=== PATIENT | male | born 1965 | race Caucasian/White ===

== ENCOUNTER 2017-04-17 07:01 | Day surgery (SDC) | payer BC ==
[2017-04-16 11:15] VITALS: BMI 28.5
[2017-04-17 07:31] LABS: URINE APPEARANCE CLEAR; URINE BILIRUBIN NEGATIVE (NEGATIVE); URINE BLOOD NEGATIVE (NEGATIVE); URINE COLOR LTYELLOW; URINE GLUCOSE (UA) NEGATIVE (NEGATIVE); URINE KETONE NEGATIVE (NEGATIVE); URINE LEUK ESTERASE NEGATIVE (NEGATIVE); URINE NITRITE NEGATIVE (NEGATIVE); URINE PROTEIN NEGATIVE (NEGATIVE); URINE UROBILINOGEN NEGATIVE mg/dL (0.2-1.0)
[2017-04-17 07:50] LABS: INR 1.03 (0.82-1.09); PROTHROMBIN TIME (PATIENT) 11.6 SEC (9.98-11.88)
[2017-04-17 07:53] LABS: ACTIVATED PTT 30.6 SECONDS (26.9-34.4)
[2017-04-17] MEDS ORDERED: BUPIVACAINE HCL/PF 0.25% (2.5MG/ML) 10 ML VIAL ONE (08:53)
[2017-04-17] MEDS ORDERED: methylPREDNISolone ACET (DEPO) 80 MG/1 ML VIAL ONE (08:53)
[2017-04-17] MEDS ORDERED: LIDOCAINE HCL 1%, 10 MG/ML (20ML VIAL) ONE (08:53)
[2017-04-17] MEDS ORDERED: PROPOFOL 20 ML ONE ×2 (09:21)
[2017-04-17] MEDS ORDERED: MIDAZOLAM HCL 2 MG/2 ML SINGLE DOSE VIAL ONE (09:21)
[2017-04-17] MEDS ORDERED: LIDOCAINE HCL/PF 2% SDV 5ML VIAL ONE (09:21)
[2017-04-17] MEDS ORDERED: LIDOCAINE HCL 1%, 10 MG/ML (20ML VIAL) SNB ONE ×3 (09:31)
[2017-04-17] MEDS ORDERED: BUPIVACAINE HCL/PF 0.25% (2.5MG/ML) 10 ML VIAL IJ ONE ×2 (09:31)
[2017-04-17] MEDS ORDERED: methylPREDNISolone ACET (DEPO) 80 MG/1 ML VIAL IM ONE (09:32)
--- NOTE | 2017-04-17 10:25 | OP ---
DATE OF OPERATION: 04/17/2017 PREOPERATIVE DIAGNOSES: C6-7 degenerative disk disease with left C7 radiculopathy. POSTOPERATIVE DIAGNOSES: C6-7 degenerative disk disease with left C7 radiculopathy. ATTENDING SURGEON: Adam Bennett MD PROCEDURE: 1. Left C6-7 epidural steroid injection. 2. Intraoperative fluoroscopy. ANESTHESIA: Local with IV sedation. ANESTHESIOLOGIST: Abundio Lopez MD INDICATION: The patient is a 51-year-old male with recurrent neck pain and cervical radiculopathy. He had previously responded to cervical epidural steroid injection and cervical facet block for radiculopathy and axial neck pain, respectively. He comes back several years later with recurrent symptoms including some weakness of the left arm in the triceps area. The patient wants to try another epidural steroid injection as it helped him previously. The risks of the procedure include, but are not limited to, bleeding, infection, spinal headache, and neurological injury. The patient understands indication for the procedure, procedure in detail, risks and benefits and alternatives for the treatment of his cervical spine condition and wishes to proceed. No guarantees were given for a favorable outcome. PROCEDURE IN DETAIL: After the patient was taken to the operating room, he was placed in prone position with a pillow under his chin. Head was secured in a foam head rest. Posterior cervical region was cleaned with alcohol and prepped with Betadine. Arms were tucked on the sides. Posterior cervical region was anesthetized with 5 mL of 1% Xylocaine. A 22-gauge spinal needle was inserted under AP and lateral fluoroscopic guidance from a left-sided approach to C6-7. Zeid-lb-tkkrtxvqbb technique was utilized, and there was no CSF or blood backflow at any point in time. The needle was marched medially into the lateral recess, and 80 mg of Depo-Medrol 80 mg and 1 mL of 0.25% Marcaine were injected. The needle was withdrawn. Sterile bandage was applied. The patient tolerated the procedure well and was turned back to supine position, moving bilateral upper and lower extremities well. He did not complain of headache or any new neurological symptoms in his upper or lower extremities. ADAM BENNETT M.D. [id number]
[2017-04-17 11:57] VITALS: TEMP 98.1
[2017-04-17 11:58] VITALS: BP 108/75; PULSE 63
== END 2017-04-17 11:35 | disposition home or self-care (01) ==
LOC: JASU-SURG 07:01
PROVIDERS: ATTEND Neurological Surgery
PROC: 3E0R3BZ Introduction of Anesthetic Agent into Spinal Canal, Percutaneous Approach (ICD-10-PCS; 2017-04-17)
PROC: B01BZZZ Fluoroscopy of Spinal Cord (ICD-10-PCS; 2017-04-17)
PROC: 3E0R33Z Introduction of Anti-inflammatory into Spinal Canal, Percutaneous Approach (ICD-10-PCS; principal; 2017-04-17 09:00)
DX: M50.123 Cervical disc disorder at C6-C7 level with radiculopathy (principal)
CPT/HCPCS: 36415; 76000-TC-FY; 81003; 85610; 85730

== ENCOUNTER 2017-10-29 19:57 | Emergency (ER) | payer BC ==
--- NOTE | 2017-10-29 20:00 | PDOC ---
History of Present Illness - History of Present Illness Initial Comments: 10/29/17 20:22 Patient is a 52 year old male with a significant past medical history of Torn Meniscus, Spinal Stenosis, who presents to the ED with complaints of right hip pain that he states began x1 week ago. Patient reports sleeping last week when he accidently fell out of bed onto his right side with immediate pain. He reports right hip pain has been constant for one week and has shown no signs of subsiding, prompting him to come into the ED for further evaluation. Patient reports taking Gabapentin previously prescribed for his spinal stenosis with slight relied. He reports being concerned that he might have damaged in the area of the pain. Denies chest pain, Sob. Denies nausea, vomiting. Denies contact with sick individuals, out of state travelling. Denies dysuria, hematuria. Denies trauma to affected area. Denies diarrhea, constipation. Allergies: None Social history: Current everyday smoker. Social alcohol use. No illicit drugs. Surgical history: None PMD: None Adult ROS General: No fevers or chills, no weakness, no weight loss HEENT: No change in vision. No sore throat, No ear pain Cardiovascular: No chest pain or shortness of breath Respiratory:No cough, or wheezing. Gastrointestinal: No nausea, vomiting, diarrhea or constipation, No rectal bleeding Genitourinary: No dysuria, hematuria, or frequency Musculoskeletal: +Right hip pain. No joint or muscle pain or swelling Neurologic: No headache, vertigo, dizziness or loss of consciousness Psychiatric: No depression Skin: No rashes or easy bruising Endocrine: No increased thirst or abnormal weight change Allergic: No skin or latex allergy All other systems reviewed and normal Basic PE GENERAL: The patient is awake, alert, and fully oriented, in no acute distress. HEAD: Normal with no signs of trauma. EYES: Pupils equal, round and reactive to light, extraocular movements intact, sclera anicteric, conjunctiva clear. EXTREMITIES: +Mild soft tissue discomfort on deep palpation on the right thigh. +Full ROM of hip without any discomfort. No bony tenderness on palpation of pelvis of hip or thigh. Neurovascularly intact. Normal range of motion, no edema. NEUROLOGICAL: Normal speech, normal gait. PSYCH: Normal mood, normal affect. SKIN: Warm, Dry, normal turgor, no rashes or lesions noted. <Eugenio Lares - Last Filed: 10/29/17 20:22> - General History Source: Patient Exam Limitations: No Limitations - History of Present Illness Initial Comments: 10/29/17 20:47 A portion of this note was documented by scribe services under my direction. I have reviewed the details of the note, within reason, and agree with the documentation. The case summary and management plan written by me. Assessment and plan: This is a 52-year-old male who rolled out of bed landing on a hardwood floor approximately 1 week ago. Patient is ambulating with minimal difficulty since. Patient said he did have a bruise on his thigh that has since nearly resolved however because he is still having some discomfort with ambulation he came in for evaluation. Patient had minimal discomfort on palpation of the soft tissues however there was no tenderness on palpation of the bony structures of the hip or thigh. Patient reassured that the thigh or hip is not broken and discharged home <Cierra Pacheco I - Last Filed: 10/29/17 20:48> - General Chief Complaint: Injury Stated Complaint: FELL OUT OF BED ONE WEEK AGO INJURY TO RIGHT HIP A Time Seen by Provider: 10/29/17 20:00 Past History <Eugenio Lares - Last Filed: 10/29/17 20:22> - Past Medical History Anemia: No Asthma: No Cancer: No Cardiac Disorders: No CVA: No COPD: No CHF: No Dementia: No Diabetes: No GI Disorders: No Disorders: No HTN: No Hypercholesterolemia: No Liver Disease: Yes (H/O HEP -TREATED FOR SAME) Seizures: No Thyroid Disease: No - Surgical History Abdominal Surgery: No Appendectomy: No Cardiac Surgery: No Cholecystectomy: No Lung Surgery: No Neurologic Surgery: No Orthopedic Surgery: No - Immunization History Immunization Up to Date: Yes - Suicide/Smoking/Psychosocial Hx Smoking History: Current every day smoker Have you smoked in the past 12 months: Yes Number of Cigarettes Smoked Daily: 15 'Breaking Loose' booklet given: 04/17/17 Hx Alcohol Use: Yes (occasion) Drug/Substance Use Hx: No Substance Use Type: Alcohol Hx Substance Use Treatment: No <Cierra Pacheco I - Last Filed: 10/29/17 20:48> - Past Medical History Allergies/Adverse Reactions: Allergies Allergy/AdvReac Type Severity Reaction Status Date / Time No Known Drug Allergies Allergy Verified 04/16/17 11:18 Home Medications: Ambulatory Orders Gabapentin [Neurontin] 100 mg PO DAILY #30 capsule 10/29/17 Naproxen [Naprosyn] 500 mg PO BID #14 tablet 10/29/17 *Physical Exam - Vital Signs Last Vital Signs Temp Pulse Resp BP Pulse Ox 98.3 F 71 16 114/76 98 10/29/17 20:01 10/29/17 20:01 10/29/17 20:01 10/29/17 20:01 10/29/17 20:01 <Eugenio Lares - Last Filed: 10/29/17 20:22> *DC/Admit/Observation/Transfer - Attestations Scribe Attestion: 10/29/17 20:22 Documentation prepared by Eugenio Lares, acting as expert medical writer for Cierra Pacheco MD. <Eugenio Lares - Last Filed: 10/29/17 20:22> - Discharge Dispostion Decision to Admit order: No <Cierra Pacheco I - Last Filed: 10/29/17 20:48> Diagnosis at time of Disposition: Contusion, hip and thigh Qualifiers: Encounter type: initial encounter Laterality: right Qualified Code(s): S70.01XA - Contusion of right hip, initial encounter - Discharge Dispostion Disposition: HOME Condition at time of disposition: Stable - Prescriptions Prescriptions: Gabapentin [Neurontin] 100 mg PO DAILY #30 capsule Naproxen [Naprosyn] 500 mg PO BID #14 tablet - Patient Instructions Additional Instructions: Take your gabapentin as prescribed. In addition to gabapentin I also sent a prescription two-year pharmacy for naproxen which is a better anti- inflammatory. Get it filled and take it one tablet twice a day with food don't take on an empty stomach take it for 1 week as needed for pain. Return to the emergency department immediately with ANY new, persistent or worsening symptoms. Continue any medications as previously prescribed by your physician. You should follow up with your primary doctor as soon as possible regarding today's emergency department visit. . Please make sure your doctor reviews the results of your emergency evaluation. Thank you for coming to the Emergency Department today for your care. It was a pleasure to see you today. Please note that your evaluation is INCOMPLETE until you follow-up with your doctor.
[2017-10-29 20:08] VITALS: BP 114/76; PULSE 71; TEMP 98.3; BMI 28.5
== END 2017-10-29 20:26 | disposition home or self-care (01) ==
LOC: FER 19:57
DX: S70.01XA Contusion of right hip, initial encounter (principal); W06.XXXA Fall from bed, initial encounter; Y93.84 Activity, sleeping; Y92.003 Bedroom of unspecified non-institutional (private) residence as the place of occurrence of the external cause; F17.210 Nicotine dependence, cigarettes, uncomplicated
CPT/HCPCS: 99281-25

== ENCOUNTER 2017-12-11 07:56 | Day surgery (SDC) | payer BC ==
[2017-12-10 08:50] VITALS: BMI 27.8
[2017-12-11] MEDS ORDERED: PROPOFOL 20 ML ONE (09:39)
[2017-12-11] MEDS ORDERED: methylPREDNISolone ACET (DEPO) 80 MG/1 ML VIAL IM ONE (09:40)
[2017-12-11] MEDS ORDERED: LIDOCAINE HCL 1%, 10 MG/ML (50 mL VIAL) IJ ONE (09:40)
--- NOTE | 2017-12-11 11:58 | OP ---
DATE OF OPERATION: 12/11/2017 PREOPERATIVE DIAGNOSIS: L5-S1 herniated disk with lower back pain and lumbar radiculopathy. POSTOPERATIVE DIAGNOSIS: L5-S1 herniated disk with lower back pain and lumbar radiculopathy. ATTENDING SURGEON: Adam Bennett MD PROCEDURES: 1. Right L5-S1 epidural steroid injection. 2. Intraoperative fluoroscopy. ANESTHESIA: Local with IV sedation. ANESTHESIOLOGIST: Breanna Tolbert MD INDICATION: The patient is a 52-year-old male with a history of back pain and lumbar radiculopathy. Because of the intractable symptoms and failure of conservative treatment, he is here for the first epidural steroid injection. The risks of the procedure include, but are not limited to, bleeding, infection, spinal headache, and neurological injury. The patient understands the indication for the procedure, procedure in detail, risks and benefits, and alternatives for treatment of his lumbar condition, and wished to proceed. No guarantees were given for a favorable outcome. PROCEDURE IN DETAIL: After the patient was taken to the operating room, he was placed in prone position with a pillow under his hips. The lumbar region was cleaned with alcohol and prepared with Betadine. A skin wheal was raised with 5 mL of 1% Xylocaine. A 22-gauge spinal needle was inserted under lateral fluoroscopic guidance from a right-sided approach to the L5-S1. Loss of resistance technique was utilized and there was no CSF or blood backflow. Fluoroscopic images were obtained in the AP and lateral fluoroscopic planes. Depo-Medrol of 80 mg and 1 mL of 0.25% Marcaine was injected. The needle was withdrawn. A sterile bandage was applied. The patient tolerated the procedure well, and was returned back to supine position, moving bilateral lower extremities well. He did not complain of headache. ADAM BENNETT M.D. [id number]
[2017-12-11 12:21] VITALS: BP 120/70; PULSE 70; TEMP 98
== END 2017-12-11 11:00 | disposition home or self-care (01) ==
LOC: JASU-SURG 07:56
PROVIDERS: ATTEND Neurological Surgery
PROC: 3E0R33Z Introduction of Anti-inflammatory into Spinal Canal, Percutaneous Approach (ICD-10-PCS; 2017-12-11)
PROC: B01BZZZ Fluoroscopy of Spinal Cord (ICD-10-PCS; 2017-12-11)
PROC: 3E0R3BZ Introduction of Anesthetic Agent into Spinal Canal, Percutaneous Approach (ICD-10-PCS; principal; 2017-12-11 10:00)
DX: M51.16 Intervertebral disc disorders with radiculopathy, lumbar region (principal)
CPT/HCPCS: 76000-TC-FY

== ENCOUNTER 2018-02-26 04:36 | Day surgery (SDC) | payer BC ==
[2018-02-24 18:51] VITALS: BMI 29.1
--- NOTE | 2018-02-26 07:50 | PN ---
Progress Note (short form) - Note Progress Note: NEUROSURGERY Pt examined at bedside For ACDF C6-7 under traction, SSEP/EMG/RLN monitoring Risks and benefits explained Incision marked All questions answered
[2018-02-26] MEDS ORDERED: ceFAZolin SODIUM 1 GM VIAL IVPB ONE (08:30)
[2018-02-26] MEDS ORDERED: BACITRACIN 15 GM TUBE TOPICAL OINTMENT TP ONE (08:47)
[2018-02-26] MEDS ORDERED: BACITRACIN 50,000 UNITS VIAL TP ONE (08:58)
[2018-02-26] MEDS ORDERED: THROMBIN (BOVINE) 5,000 UNIT VIAL TP ONE (08:58)
--- NOTE | 2018-02-26 11:22 | OP ---
Operative Note - Note: Operative Date: 02/26/18 Pre-Operative Diagnosis: C6-7 DDD; stenosis, radiculopathy Operation: Bebeto randle; anterior cervical discectomy C6-7; partial corpectomies C6 and C7; anterior C6-7 interbody fusion; anterior interbody implant C6-7; anterior instumentation C6-7; microdissection Findings: Sensitive L C7 root; intermittent L hand EMG; severe degenerative dsic space narrowing C6-7; anterior and posterior osteophytes Implants: [employer] Trinica Select 22 mm plate and 16 mm variable angle screws x4; 8 mm lordotic Kindred interbody implant Post-Operative Diagnosis: Same as Pre-op Surgeon: Adam Ramires Business Intelligence Director: Earle Morillo ) Anesthesiologist/CONTROL SYSTEMS DRAFTING OFFICER: Breanna Tolbert MD Anesthesia: General Specimens Removed: C6-7 disc Estimated Blood Loss (mls): 25 Operative Report Dictated: Yes
[2018-02-26] MEDS ORDERED: ONDANSETRON 4 MG/2 ML VIAL IVPUSH PRN ×3 (11:23→15:00)
[2018-02-26] MEDS ORDERED: oxyCODONE HCL 5 MG TABLET PO PRN (11:23)
[2018-02-26] MEDS ORDERED: diazePAM 5 MG TABLET PO SCH (11:30)
[2018-02-26] MEDS ORDERED: D5-1/2NS+20 MEQ KCL - 20 MEQ/1,000 ML INFUS.BAG IV SCH (11:30)
--- NOTE | 2018-02-26 11:38 | PN ---
Progress Note (short form) - Note Progress Note: NEUROSURGERY In PACU AF, VSS PE: CV- RR; Lungs- CTA B; Abd- benign; Ext- no sign of DVT CN- intact; Motor- B UE and LE4+-5; Sensation- intact to LT Dressing C/D/I/flat S/p ACDF C6-7, neurologically stable Adv diet later C spine x-rays in am Oral pain meds prn Findings d/w , including osteopenia
[2018-02-26] MEDS ORDERED: LACTATED RINGERS SOLUTION 1,000 ML IV SCH (11:45)
[2018-02-26] MEDS ORDERED: DOCUSATE SODIUM 100 MG CAPSULE (FP) PO SCH ×2 (14:00→15:00)
[2018-02-26] MEDS ORDERED: oxyCODONE HCL 5 MG TABLET ONE (14:36)
[2018-02-26] MEDS: diazePAM 5 MG TABLET PO SCH ×2 (15:06→21:07)
[2018-02-26] MEDS: D5-1/2NS+20 MEQ KCL - 20 MEQ/1,000 ML INFUS.BAG IV SCH (15:06)
[2018-02-26] MEDS ORDERED: CEFAZOLIN 1 GM/D5W 1 GM/50 ML BAG IVPB SCH (18:00)
[2018-02-26] MEDS: CEFAZOLIN 1 GM/D5W 1 GM/50 ML BAG IVPB SCH (18:10)
[2018-02-26] MEDS: oxyCODONE HCL 5 MG TABLET PO PRN (20:55)
[2018-02-27] MEDS: D5-1/2NS+20 MEQ KCL - 20 MEQ/1,000 ML INFUS.BAG IV SCH (00:20)
[2018-02-27] MEDS: CEFAZOLIN 1 GM/D5W 1 GM/50 ML BAG IVPB SCH ×2 (01:39→09:34)
[2018-02-27] MEDS: diazePAM 5 MG TABLET PO SCH (05:19)
[2018-02-27] MEDS: oxyCODONE HCL 5 MG TABLET PO PRN ×2 (05:21→09:50)
--- NOTE | 2018-02-27 06:23 | OP ---
DATE OF OPERATION: 02/26/2018 PREOPERATIVE DIAGNOSES: 1. C6-C7 disk protrusion with associated osteophyte and spinal stenosis at C6- C7. 2. Clinical left C6-C7 radiculopathy. POSTOPERATIVE DIAGNOSES: 1. C6-C7 disk protrusion with associated osteophyte and spinal stenosis at C6- C7. 2. Clinical left C6-C7 radiculopathy. ATTENDING SURGEON: Adam Ramires MD SPOT MAN: Earle Morillo MD; DEAN Jamison ANESTHESIA: General endotracheal. ANESTHESIOLOGIST: Breanna Tolbert MD ESTIMATED BLOOD LOSS: 25 mL. PROCEDURES: 1. Preoperative placement and posterior removal of cranial traction tongs for intraoperative traction (88511). 2. Anterior cervical diskectomy including partial corpectomy at C6-C7 and interbody fusion (90777). 3. Microsurgical dissection with operative microscope and microsurgical technique (66805). 4. Anterior cervical instrumentation at C6-C7 with [employer] Trinica Select 22-mm titanium plate and 16-mm variable angle titanium screws (28962). 5. Utilization of intraoperative traction device for traction (). FINDINGS: 1. Hard osteophytes, but soft medullary bone likely secondary to smoking. 2. Cervical spinal stenosis. 3. 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 INDICATIONS: The patient is a 52-year-old male with intractable neck pain and cervical radiculopathy. Because of his intractable symptoms and failure of conservative treatment including pain management injections, he is now consented for anterior cervical decompression and fusion with instrumentation. He has a disk protrusion at C6-C7 with associated osteophyte with spinal cord impingement as well as cervical nerve root impingement. The patient has now consented for anterior cervical decompression and fusion with instrumentation. The risks of the procedure include but were not limited to bleeding, infection, dural tear with CSF leak, paralysis, hoarseness, swallowing difficulty, and other risks of general anesthesia. The patient understands the indications for the procedure, procedure in detail, risks and benefits, and alternatives for treatment of cervical spine condition and wishes to proceed. No guarantees were given for a favorable outcome. PROCEDURE IN DETAIL: The patient was taken to the operating room. He was placed in the supine position. After general anesthesia was induced and appropriate lines were placed, the head was placed on Brooks horseshoe in the neutral position. Cranial retraction tongs were placed with bacitracin ointment. After SSEP, EMG, and MEP electrodes were placed, the shoulders were taped down to the sides. The arms were tucked. Anterior cervical region was cleaned with alcohol and prepped with betadine. Local anesthesia was obtained. Approximately 1-1/2 inch incision was opened over C6-C7 after the patient was sterilely prepped and draped. No traction weight was placed until the baseline SSEP and MEP signals were obtained, at which point 5 pounds of traction weight was placed. After the skin incision was opened, the self-retaining retractor was applied. Metzenbaum scissors was used to create a longitudinal opening of the platysmas muscle. Dissection then proceeded medial to the carotid sheath and lateral to the trachea and esophagus. An extremely deep exposure was encountered because of the patient's size and very muscular nature of the neck. The common facial vein was skeletonized and preserved. It was retracted medially. At this point, the prevertebral fascia was cleaned with Kitner. Localization was obtained with a spinal needle and placed at the C6-C7 disk space. This was very difficult because the disk space was severely collapsed. After position was verified, the anterior bridging osteophytes were resected with a Leksell rongeur. Partial corpectomy was carried out with the high-speed pneumatic drill , angled curette, and Kerrison rongeur. Because the disk space was rather collapsed, partial corpectomy was performed where needed. The traction weight was increased to 10 pounds at this time. There was sporadic left hand EMG activity throughout, even from the beginning and before any work was performed. The microscope was brought in at this point, for both illumination and magnification. Microsurgical techniques were utilized. Partial corpectomy was completed with angled curette and Kerrison rongeur and the posterior longitudinal ligament was resected with an angled curette and a Kerrison rongeur. Bilateral foraminotomy was carried out similarly at C6- C7. Epidural hemostasis was obtained using bipolar electrocautery and thrombin- soaked powdered Gelfoam. At this point, the disk space was sized to be approximately 16.5 mm in AP diameter. Height was about 8 mm. An 8-mm interbody implant from [employer] was inserted and countersunk by 2 mm. The 22-mm Trinica Select titanium plate from [employer] was secured with fixation pins and screw holes were all drilled and then screws were placed. The cortical bone was very rigid, but the medullary bone was soft. Then 16-mm variable angle screws were used at both C6 and C7. Lateral cervical spine x-ray demonstrated satisfactory position of the implants. However, because of the persistent sporadic left hand EMG activity, the implants were all removed, and the anterior surface of the cord as well as proximal neural foramina was inspected bilaterally and further decompression was carried out with angled curette and Kerrison rongeur. No persistent compressive element was identified. The 8-mm interbody implants were reinserted and countersunk by about 3 mm this time which distracted the space slightly more. It was felt upon exploration that that the bilateral neural foramina were patent upon palpation with the angled curette and the 2-mm Kerrison rongeur. The screws were then placed and the system was reinserted. There was still good bone purchase with reinsertion. The wound was irrigated with antibiotic-containing irrigation. The locking mechanisms of the screws were placed and were engaged. EMG activity did quiet down after this portion of the procedure. A piece of 4 x 4 cm ActiveBarrier membrane was laid on top of the plating system. The common facial vein had slight oozing and was lightly coagulated. A piece of Surgicel was laid over top of the vein. The platysmal muscle was closed with 3-0 Vicryl suture. The subcutaneous fascia was closed with 3-0 Vicryl suture similarly. The skin was closed with 0 Vicryl in a running subcuticular suture. Steri-Strips and sterile occlusive dressing was applied. The patient tolerated the procedure well and was extubated in the operating room. All needle and lap counts were correct. The cranial retraction tongs were removed. There was no significant bleeding. The patient was moving bilateral upper and lower extremities in the recovery room. Intraoperative SSEP and MEP signals remained stable. The EMG signal did quiet down, as stated earlier. Patient received one dose of 2 gm Ancef prior to incision. He also received 10 mg Decadron. OR time out procedure was followed. Jodie [id number] CC: Earle Morillo MD [facility]
--- NOTE | 2018-02-27 08:15 | PN ---
Progress Note (short form) - Note Progress Note: Anesthesia post op Pt seen and examined S:Alert and awake O: Vital Signs Temperature 98.2 F 02/27/18 06:25 Pulse Rate 75 02/27/18 06:25 Respiratory Rate 20 02/27/18 06:25 Blood Pressure 136/68 02/27/18 06:25 O2 Sat by Pulse Oximetry (%) 92 L 02/26/18 14:00 A/P: s/pACDF C6-7 Doing well post op Continue current care Abundio Lopez M.D.
--- NOTE | 2018-02-27 09:34 | PN ---
Progress Note (short form) - Note Progress Note: NEUROSURGERY POD#1 Intrascpular tightness/spasm as expected Tmax 98.9 AF, VSS PE: CV- RR; Lungs- CTA B; Abd- benign; Ext- no sign of DVT CN- intact; Motor- B UE and LE4+-5; Sensation- intact to LT Dressing C/D/I/flat- cnaged C spine x-rays- excellent position of C6-7 implants; prevertebral swelling as expected S/p ACDF C6-7, neurologically stable Adv diet Oral pain meds prn Findings d/w pt, including osteopenia Smoking cessation D/C instructions given F/u plans discussed Oxycodone for pain All questions answered
--- NOTE | 2018-02-27 11:23 | PATH ---
Surgical Pathology Report Patient Name: AMERICO YODER [facility]. Rec. #: [id number] /Age/Gender: 1965 (Age: 52) / M Account: [id number] Location: AMBULATORY SURG Taken: 02/26/2018 Received: 02/26/2018 Reported: 02/27/2018 Physicians: Adam Ramires M.D. Specimen(s) Received DISC C6-C7 Clinical History Cervical disc disorder with radiculopathy Final Diagnosis DISC, C6 AND C7, ANTERIOR CERVICAL DECOMPRESSION, FUSION WITH INSTRUMENTATION: BENIGN INTERVERTEBRAL DISC TISSUE AND BONE. Electronically Signed Joyce Jo M.D. Gross Description Received in formalin labeled "disc C6 and C7," is a 2.4 x 2.0 x 0.3 cm aggregate of morataya fragments of fibrocartilaginous tissue. The specimen is entirely submitted in one cassette. /02/26/201802/26/2018
[2018-02-27 12:26] VITALS: BP 114/67; PULSE 77; TEMP 97.6
[2018-02-27] MEDS ORDERED: DOCUSATE SODIUM 100 MG CAPSULE (FP) PO SCH (15:00)
== END 2018-02-27 11:05 | disposition home or self-care (01) ==
LOC: JASUSAT 04:36 → J8W 14:14 → JASUSAT 02-27 11:05
PROVIDERS: ATTEND Neurological Surgery
PROC: 0RB30ZZ Excision of Cervical Vertebral Disc, Open Approach (ICD-10-PCS; 2018-02-26)
PROC: 0RG10A0 Fusion of Cervical Vertebral Joint with Interbody Fusion Device, Anterior Approach, Anterior Column, Open Approach (ICD-10-PCS; 2018-02-26)
PROC: 0RT30ZZ Resection of Cervical Vertebral Disc, Open Approach (ICD-10-PCS; principal; 2018-02-26 08:00)
DX: M50.123 Cervical disc disorder at C6-C7 level with radiculopathy (principal); M48.02 Spinal stenosis, cervical region; M25.78 Osteophyte, vertebrae
CPT/HCPCS: 22551; 22845; C1713; 72050-TC-FY; 86850; 86900; 86901; 88304-TC; 94010; 94760; 97116-GP; 97161-GP

== ENCOUNTER 2020-06-29 04:09 | Day surgery (SDC) | payer BC ==
[2020-06-24 09:02] VITALS: BMI 29.1
[2020-06-29] MEDS ORDERED: methylPREDNISolone ACET (DEPO) 80 MG/1 ML VIAL ONE (07:14)
[2020-06-29] MEDS ORDERED: BUPIVACAINE HCL/PF 0.25% (2.5MG/ML) 10 ML VIAL ONE (07:14)
[2020-06-29] MEDS ORDERED: LIDOCAINE HCL/PF 2% SDV 5ML VIAL ONE (07:50)
[2020-06-29] MEDS ORDERED: PROPOFOL 20 ML ONE (07:51)
[2020-06-29] MEDS ORDERED: MIDAZOLAM HCL 2 MG/2 ML SINGLE DOSE VIAL ONE (07:51)
[2020-06-29] MEDS ORDERED: methylPREDNISolone ACET (DEPO) 80 MG/1 ML VIAL IM ONE (07:57)
[2020-06-29] MEDS ORDERED: LIDOCAINE HCL 1% PRESERVATIVE FREE - 30ML VIAL IJ ONE (07:57)
[2020-06-29] MEDS ORDERED: BUPIVACAINE HCL/PF 2.5 MG/ML - 30 ML VIAL IJ ONE (07:57)
[2020-06-29 13:01] VITALS: BP 108/70; PULSE 64; TEMP 97.5
== END 2020-06-29 08:45 | disposition home or self-care (01) ==
LOC: JASU-SURG 04:09
PROVIDERS: ATTEND Neurological Surgery
PROC: 3E0R33Z Introduction of Anti-inflammatory into Spinal Canal, Percutaneous Approach (ICD-10-PCS; 2020-06-29)
PROC: 3E0R3BZ Introduction of Anesthetic Agent into Spinal Canal, Percutaneous Approach (ICD-10-PCS; principal; 2020-06-29 07:30)
DX: M51.17 Intervertebral disc disorders with radiculopathy, lumbosacral region (principal)
CPT/HCPCS: 76000-TC-FY

== ENCOUNTER 2020-12-07 04:34 | Day surgery (SDC) | payer BC ==
[2020-12-05 12:17] VITALS: BMI 29.1
[2020-12-07] MEDS ORDERED: MIDAZOLAM HCL 2 MG/2 ML SINGLE DOSE VIAL ONE ×2 (08:09→08:14)
[2020-12-07] MEDS ORDERED: methylPREDNISolone ACET (DEPO) 80 MG/1 ML VIAL IM ONE (08:13)
[2020-12-07] MEDS ORDERED: BUPIVACAINE HCL/PF 0.25% (2.5MG/ML) 10 ML VIAL IJ ONE (08:13)
[2020-12-07] MEDS ORDERED: LIDOCAINE HCL 1%, 10 MG/ML (20ML VIAL) INF ONE (08:13)
[2020-12-07 09:17] VITALS: BP 121/69; PULSE 72; TEMP 98.1
== END 2020-12-07 09:00 | disposition home or self-care (01) ==
LOC: JASU-SURG 04:34
PROVIDERS: ATTEND Neurological Surgery
PROC: 3E0R33Z Introduction of Anti-inflammatory into Spinal Canal, Percutaneous Approach (ICD-10-PCS; 2020-12-07)
PROC: 3E0R3BZ Introduction of Anesthetic Agent into Spinal Canal, Percutaneous Approach (ICD-10-PCS; principal; 2020-12-07 08:00)
DX: M51.14 Intervertebral disc disorders with radiculopathy, thoracic region (principal)
CPT/HCPCS: 76000-TC-FY

== ENCOUNTER 2021-01-18 04:12 | Inpatient (IN) | payer BC ==
[2021-01-17 09:08] VITALS: BMI 29.8
[2021-01-18] MEDS ORDERED: GENTAMICIN SO4 80 MG/2 ML VIAL ONE (06:47)
[2021-01-18] MEDS ORDERED: BUPIVACAINE HCL/PF 0.5% (5MG/ML) 10 ML VIAL ONE (06:48)
[2021-01-18] MEDS ORDERED: BACITRACIN 15 GM TUBE TOPICAL OINTMENT ONE (06:48)
[2021-01-18] MEDS ORDERED: VANCOMYCIN 1,000 MG VIAL (RESTRICTED TO ID ONLY) ONE (06:48)
[2021-01-18] MEDS ORDERED: THROMBIN (BOVINE) 5,000 UNIT VIAL TP ONE ×2 (06:48→08:10)
[2021-01-18] MEDS ORDERED: PROPOFOL 20 ML ONE ×3 (07:13)
[2021-01-18] MEDS ORDERED: ONDANSETRON 4 MG/2 ML VIAL ONE (07:13)
[2021-01-18] MEDS ORDERED: fentaNYL CITRATE 250 MCG/5 ML VIAL ONE (07:13)
[2021-01-18] MEDS ORDERED: LIDOCAINE HCL/PF 2% SDV 5ML VIAL ONE (07:13)
[2021-01-18] MEDS ORDERED: DEXAMETHASONE SOD PHOSPHATE 4 MG/1 ML VIAL ONE ×2 (07:13→08:04)
[2021-01-18] MEDS ORDERED: SUCCINYLCHOLINE CHLORIDE 200 MG/10 ML SYRINGE ONE (07:15)
[2021-01-18] MEDS ORDERED: ROCURONIUM BROMIDE 50 MG/5 ML SYRINGE ONE (07:15)
[2021-01-18] MEDS ORDERED: MIDAZOLAM HCL 2 MG/2 ML SINGLE DOSE VIAL ONE ×2 (07:16)
[2021-01-18] MEDS ORDERED: ceFAZolin SODIUM 1 GM VIAL IVPB ONE (07:45)
[2021-01-18] MEDS ORDERED: VANCOMYCIN 1,000 MG VIAL (RESTRICTED TO ID ONLY) IVPB ONE (08:10)
[2021-01-18] MEDS ORDERED: NEOSTIGMINE METHYLSULFATE 0.5 MG/1 ML - 10 ML MDV ONE (08:14)
[2021-01-18] MEDS ORDERED: GLYCOPYRROLATE 0.2 MG/1 ML VIAL ONE (08:14)
[2021-01-18] MEDS ORDERED: ceFAZolin SODIUM 1 GM VIAL ONE ×3 (08:15→22:38)
[2021-01-18] MEDS ORDERED: BUPIVACAINE HCL/PF 0.5% (5 MG/ML) 30 ML VIAL IJ ONE ×2 (08:52→09:15)
[2021-01-18] MEDS ORDERED: BACITRACIN 15 GM TUBE TOPICAL OINTMENT TP ONE ×2 (08:54→09:30)
[2021-01-18] MEDS ORDERED: ONDANSETRON 4 MG/2 ML VIAL IVPUSH PRN ×2 (09:33→09:46)
[2021-01-18] MEDS ORDERED: oxyCODONE HCL 5 MG TABLET PO PRN (09:33)
[2021-01-18] MEDS ORDERED: HYDROmorphone HCl 2 MG/ML VIAL IVPB PRN (09:37)
[2021-01-18] MEDS ORDERED: HYDROmorphone HCl 2 MG/ML VIAL IVPUSH PRN (09:46)
[2021-01-18] MEDS ORDERED: LACTATED RINGERS SOLUTION 1,000 ML IV SCH (10:00)
[2021-01-18] MEDS: HYDROmorphone HCl 2 MG/ML VIAL IVPUSH PRN ×4 (10:30→11:35)
[2021-01-18] MEDS ORDERED: diazePAM 5 MG TABLET ONE (13:30)
[2021-01-18] MEDS: diazePAM 5 MG TABLET PO SCH ×2 (13:34→21:20)
[2021-01-18] MEDS: DOCUSATE SODIUM 100 MG CAPSULE (FP) PO SCH ×2 (14:00→21:20)
[2021-01-18] MEDS: CEFAZOLIN 1 GM in DEXTROSE 5%-WATER - 1 GM/50 ML IVPB IVPB SCH ×2 (16:00→23:23)
[2021-01-18] MEDS: D5-1/2NS+20 MEQ KCL - 20 MEQ/1,000 ML INFUS.BAG IV SCH (20:26)
[2021-01-18] MEDS ORDERED: DEXTROSE 5%-WATER - 50 ML IVPB ONE (22:38)
[2021-01-19] MEDS: DOCUSATE SODIUM 100 MG CAPSULE (FP) PO SCH (05:52)
[2021-01-19] MEDS: diazePAM 5 MG TABLET PO SCH (05:52)
[2021-01-19 06:07] VITALS: BP 105/58; PULSE 74; TEMP 98.7
[2021-01-19] MEDS: D5-1/2NS+20 MEQ KCL - 20 MEQ/1,000 ML INFUS.BAG IV SCH (06:54)
== END 2021-01-19 11:03 | disposition home or self-care (01) | DRG 460 ==
LOC: J2C 04:12 → J8W 19:45
PROVIDERS: ADMIT Neurological Surgery; ATTEND Neurological Surgery
PROC: 01N80ZZ Release Thoracic Nerve, Open Approach (ICD-10-PCS; 2021-01-18)
PROC: 0RG6071 Fusion of Thoracic Vertebral Joint with Autologous Tissue Substitute, Posterior Approach, Posterior Column, Open Approach (ICD-10-PCS; principal; 2021-01-18 07:30)
DX: M51.14 Intervertebral disc disorders with radiculopathy, thoracic region (principal); M48.04 Spinal stenosis, thoracic region
CPT/HCPCS: 76000-TC-FY; 94010; 94760

== ENCOUNTER 2023-04-15 04:18 | Day surgery (SDC) | payer BC ==
[2023-04-10 10:57] VITALS: BMI 29.1
[2023-04-15] MEDS ORDERED: LIDOCAINE HCL/PF 2% SDV 5ML VIAL ONE (07:12)
[2023-04-15] MEDS ORDERED: MIDAZOLAM HCL 2 MG/2 ML SINGLE DOSE VIAL ONE (07:12)
[2023-04-15] MEDS ORDERED: PROPOFOL 20 ML ONE (07:12)
[2023-04-15] MEDS ORDERED: BUPIVACAINE HCL/PF 0.5% (5MG/ML) 10 ML VIAL ONE (07:31)
[2023-04-15] MEDS ORDERED: ceFAZolin SODIUM 1 GM VIAL ONE (08:27)
[2023-04-15] MEDS ORDERED: DEXAMETHASONE SOD PHOSPHATE 4 MG/1 ML VIAL ONE (08:27)
[2023-04-15] MEDS: ceFAZolin SODIUM 1 GM VIAL IVPB ONE (08:30)
[2023-04-15] MEDS ORDERED: KETOROLAC TROMETHAMINE 30 MG/1 ML VIAL ONE (08:44)
[2023-04-15] MEDS ORDERED: ONDANSETRON 4 MG/2 ML VIAL ONE (08:44)
[2023-04-15] MEDS: BUPIVACAINE HCL/PF 0.5% (5 MG/ML) 30 ML VIAL IJ ONE (09:00)
[2023-04-15] MEDS ORDERED: PROMETHAZINE HCL 25 MG/1 ML VIAL IVPB PRN (09:11)
[2023-04-15] MEDS ORDERED: oxyCODONE HCL 5 MG TABLET PO PRN ×2 (09:11)
[2023-04-15] MEDS ORDERED: ONDANSETRON 4 MG/2 ML VIAL IVPUSH PRN (09:11)
[2023-04-15] MEDS ORDERED: ACETAMINOPHEN 1000 MG/100 ML BAG IVPB ONE (09:12)
[2023-04-15] MEDS ORDERED: LACTATED RINGERS SOLUTION 1,000 ML IV SCH (09:15)
[2023-04-15 10:45] VITALS: RESP 18
[2023-04-15 10:46] VITALS: BP 123/71; PULSE 60; TEMP 97.3
== END 2023-04-15 10:45 | disposition home or self-care (01) ==
LOC: JASU-SURG 04:18
PROVIDERS: ATTEND Orthopaedic Surgery
PROC: 0SBC4ZZ Excision of Right Knee Joint, Percutaneous Endoscopic Approach (ICD-10-PCS; principal; 2023-04-15 08:00)
DX: S83.231A Complex tear of medial meniscus, current injury, right knee, initial encounter (principal); M65.861 Other synovitis and tenosynovitis, right lower leg; X58.XXXA Exposure to other specified factors, initial encounter; Y93.9 Activity, unspecified; Y92.9 Unspecified place or not applicable
CPT/HCPCS: 94760